=== PATIENT | male | born 1955 | race Caucasian/White ===

== ENCOUNTER 2017-08-26 06:09 | Inpatient (IN) ==
[~2017-08-26 06:09] MED LIST: VANCOMYCIN 1,000 MG VIAL ONE; ceFAZolin 1,000 MG VIAL ONE
[2017-08-26] MEDS ORDERED: TRANEXAMIC ACID 1,000 MG/10 ML VIAL ONE ×2 (06:15→07:46)
[2017-08-26] MEDS ORDERED: MORPHINE 10 MG/10 ML VIAL ONE (06:15)
[2017-08-26] MEDS ORDERED: BUPIVACAINE SPINAL 0.75% 2 ML AMP SPINAL ONE (06:15)
[2017-08-26] MEDS ORDERED: VANCOMYCIN INJ 1,000 MG in SODIUM CHLORIDE 0.9% 250 ML IV ONE (06:30)
[2017-08-26] MEDS ORDERED: ceFAZolin 1,000 MG in SYRINGE 1 EACH IV ONE (06:30)
[2017-08-26] MEDS ORDERED: FAMOTIDINE 20 MG TABLET PO ONE (06:50)
[2017-08-26] MEDS ORDERED: FAMOTIDINE 20 MG TABLET ONE (07:02)
[2017-08-26] MEDS: LACTATED RINGERS 1,000 ML IV SCH (07:17)
[2017-08-26] MEDS ORDERED: ROPIVACAINE 0.5% 30 ML VIAL ONE (08:45)
[2017-08-26] MEDS ORDERED: hydrOXYzine HCL 25 MG/1 ML VIAL IM PRN (09:42)
[2017-08-26] MEDS ORDERED: diphenhydrAMINE 50 MG/1 ML VIAL IV PRN (09:42)
[2017-08-26] MEDS ORDERED: ONDANSETRON 4 MG/2 ML VIAL IV PRN ×2 (09:42→10:15)
[2017-08-26] MEDS ORDERED: MORPHINE PCA 30 MG/30 ML SYRINGE IV ONE (09:55)
[2017-08-26] MEDS ORDERED: MIDAZOLAM 2 MG/2 ML VIAL ONE (09:57)
[2017-08-26] MEDS ORDERED: fentaNYL 100 MCG/2 ML VIAL ONE (09:57)
[2017-08-26] MEDS ORDERED: PHENYLEPHRINE 10 MG/1 ML VIAL IV ONE (09:57)
[2017-08-26] MEDS ORDERED: ONDANSETRON 4 MG/2 ML VIAL ONE (09:57)
[2017-08-26] MEDS ORDERED: GLYCOPYRROLATE 0.4 MG/2 ML VIAL ONE (09:57)
[2017-08-26] MEDS ORDERED: KETAMINE 500 MG/10 ML VIAL ONE (09:57)
[2017-08-26] MEDS ORDERED: PROPOFOL 200 MG/20 ML VIAL IV ONE (09:57)
[2017-08-26] MEDS ORDERED: SODIUM CHLORIDE 0.9% 100 ML IV ONE (09:58)
[2017-08-26] MEDS ORDERED: LACTATED RINGERS 1,000 ML IV ONE (09:58)
[2017-08-26] MEDS ORDERED: ACETAMINOPHEN 1,000 MG/100 ML VIAL IV ONE (09:58)
[2017-08-26] MEDS ORDERED: MORPHINE 10 MG/1 ML VIAL IV PRN (10:15)
[2017-08-26] MEDS ORDERED: TEMAZEPAM 7.5 MG CAPSULE PO PRN (10:16)
[2017-08-26] MEDS ORDERED: NALOXONE 0.4 MG/ML VIAL IV PRN (10:16)
[2017-08-26] MEDS ORDERED: MORPHINE 4 MG/1 ML VIAL IV PRN ×2 (10:16→11:57)
[2017-08-26] MEDS ORDERED: BISACODYL 10 MG SUPP RECTAL PRN (10:16)
[2017-08-26] MEDS ORDERED: MAGNESIUM HYDROXIDE SUSP 30 ML UDCUP PO PRN (10:16)
[2017-08-26] MEDS ORDERED: PROMETHAZINE 25 MG/1 ML VIAL IM PRN (10:16)
[2017-08-26] MEDS ORDERED: GLUCAGON 1 MG VIAL IM PRN (10:20)
[2017-08-26] MEDS ORDERED: DEXTROSE 50% 25 GM/50 ML VIAL IV PRN (10:20)
[2017-08-26] MEDS ORDERED: LACTATED RINGERS 1,000 ML IV SCH (10:30)
[2017-08-26] MEDS: MORPHINE PCA 30 MG/30 ML SYRINGE IV SCH (10:34)
[2017-08-26] MEDS ORDERED: diphenhydrAMINE CAP 25 MG CAPSULE PO PRN (11:00)
[2017-08-26] MEDS ORDERED: LACTULOSE 20 GM/30 ML UDCUP PO PRN (11:30)
[2017-08-26] MEDS: INSULIN REGULAR 100 UNIT/ML SUBCUT SCH ×3 (14:38→22:24)
[2017-08-26] MEDS: INSULIN GLARGINE 100 UNIT/ML SUBCUT SCH (17:44)
[2017-08-26] MEDS: ceFAZolin 2,000 MG in PREMIX 1 EACH IV SCH (17:45)
[2017-08-26] MEDS: DOCUSATE SODIUM 100 MG CAPSULE PO SCH (20:22)
[2017-08-27] MEDS: ceFAZolin 2,000 MG in PREMIX 1 EACH IV SCH (00:56)
[2017-08-27 05:15] LABS: Basophils # 0.1 10*3/uL (0.0-0.2); Basophils % 0.5 % (0.0-0.8); Eosinophils # 0.3 10*3/uL (0.0-0.87); Eosinophils % 1.9 % (0.00-10.9); Hematocrit 37.4 VOL% (42.0-52.0); Hemoglobin 13.5 GM/DL (14.0-18.0); Immature Granulocytes % 0.6 %; Lymphocytes # 1.9 10*3/uL (1.4-4.0); Lymphocytes % 11.4 % (21.2-54.2); Mean Corpuscular HGB Conc 36.1 GM/DL (32-36); Mean Corpuscular Hemoglobin 32 PG (27-34); Mean Corpuscular Volume 88.2 FL (87-102); Mean Platelet Volume 10.2 FL (9.6-12.0); Monocytes # 2.3 10*3/uL (0.11-0.8); Monocytes % 13.5 % (1.7-12.7); Neutrophils # 12.2 10*3/uL (1.4-7.4); Neutrophils % 72.1 % (38.7-73.9); Platelet Count 214 T/CUMM (130-400); Red Blood Count 4.24 MC/CUMM (3.8-5.5); Red Cell Distribution Width 12.4 % (9.3-17.3)
[2017-08-27 05:32] LABS: Calcium 8.4 MG/DL (8.5-10.1); Osmolality,Calculated 272.1 MOS/KG (273-304); Potassium 4.1 MMOL/L (3.5-5.1)
[2017-08-27] MEDS: LACTATED RINGERS 1,000 ML IV SCH (06:36)
[2017-08-27] MEDS: FONDAPARINUX 2.5 MG/0.5 ML SYRINGE SUBCUT SCH (06:36)
[2017-08-27] MEDS ORDERED: INSULIN GLARGINE 100 UNIT/ML SUBCUT SCH (09:00)
[2017-08-27] MEDS: DOCUSATE SODIUM 100 MG CAPSULE PO SCH ×2 (09:23→22:30)
[2017-08-27] MEDS: glyBURIDE 5 MG TABLET PO SCH (09:23)
[2017-08-27] MEDS: ROSUVASTATIN 10 MG TABLET PO SCH (09:23)
[2017-08-27] MEDS: sitaGLIPtin 100 MG TABLET PO SCH (09:23)
[2017-08-27] MEDS: hydroCHLOROthiazide 12.5 MG CAPSULE PO SCH (09:24)
[2017-08-27] MEDS: BENAZEPRIL 5 MG TABLET PO SCH (09:25)
[2017-08-27] MEDS: INSULIN REGULAR 100 UNIT/ML SUBCUT SCH ×3 (10:30→23:07)
[2017-08-27] MEDS ORDERED: ACETAMINOPHEN 325 MG TABLET PO PRN (11:40)
[2017-08-27] MEDS: INSULIN GLARGINE 100 UNIT/ML SUBCUT SCH (16:43)
[2017-08-27] MEDS: MORPHINE PCA 30 MG/30 ML SYRINGE IV SCH (17:18)
[2017-08-28 04:36] LABS: Basophils % 0.2 % (0.0-0.8); Eosinophils # 0.1 10*3/uL (0.0-0.87); Eosinophils % 0.6 % (0.00-10.9); Hematocrit 38.6 VOL% (42.0-52.0); Hemoglobin 13.7 GM/DL (14.0-18.0); Immature Granulocytes % 0.9 %; Immature Granulocytes Absolute 0.18 #; Lymphocytes # 1.7 10*3/uL (1.4-4.0); Lymphocytes % 9.1 % (21.2-54.2); Mean Corpuscular HGB Conc 35.5 GM/DL (32-36); Mean Corpuscular Hemoglobin 31 PG (27-34); Mean Corpuscular Volume 88.3 FL (87-102); Mean Platelet Volume 9.9 FL (9.6-12.0); Monocytes # 2.7 10*3/uL (0.11-0.8); Monocytes % 14.4 % (1.7-12.7); Neutrophils # 14.2 10*3/uL (1.4-7.4); Neutrophils % 74.8 % (38.7-73.9); Platelet Count 222 T/CUMM (130-400); Red Blood Count 4.37 MC/CUMM (3.8-5.5); Red Cell Distribution Width 12.1 % (9.3-17.3)
[2017-08-28 05:02] LABS: Calcium 8.7 MG/DL (8.5-10.1); Osmolality,Calculated 271.2 MOS/KG (273-304); Potassium 3.6 MMOL/L (3.5-5.1)
[2017-08-28] MEDS: FONDAPARINUX 2.5 MG/0.5 ML SYRINGE SUBCUT SCH (05:35)
[2017-08-28 08:45] VITALS: BP 180/96
[2017-08-28] MEDS: INSULIN REGULAR 100 UNIT/ML SUBCUT SCH (09:12)
[2017-08-28] MEDS: BENAZEPRIL 5 MG TABLET PO SCH (09:21)
[2017-08-28] MEDS: hydroCHLOROthiazide 12.5 MG CAPSULE PO SCH (09:21)
[2017-08-28] MEDS: DOCUSATE SODIUM 100 MG CAPSULE PO SCH (09:21)
[2017-08-28] MEDS: glyBURIDE 5 MG TABLET PO SCH (09:21)
[2017-08-28] MEDS: sitaGLIPtin 100 MG TABLET PO SCH (09:21)
[2017-08-28] MEDS: ROSUVASTATIN 10 MG TABLET PO SCH (09:21)
[2017-08-28] MEDS: LACTATED RINGERS 1,000 ML IV SCH (09:30)
== END 2017-08-28 12:06 | disposition home health service (06) | DRG 470 ==
LOC: SUPCPDRO → N.OR 06:09 → N.SDSINP 06:11 → N.3E 10:16
PROVIDERS: ADMIT Orthopaedic Surgery; ATTEND Orthopaedic Surgery

== ENCOUNTER 2020-10-21 09:27 | Observation (INO) ==
[2020-10-21 10:28] LABS: Basophils # 0.1 10*3/uL (0.0-0.2); Basophils % 0.6 % (0.0-0.8); Eosinophils # 0.3 10*3/uL (0.0-0.87); Eosinophils % 2.5 % (0.00-10.9); Hematocrit 45.6 VOL% (42.0-52.0); Hemoglobin 16.1 GM/DL (14.0-18.0); Immature Granulocytes % 0.6 %; Immature Granulocytes Absolute 0.06 #; Lymphocytes # 2.1 10*3/uL (1.4-4.0); Lymphocytes % 20.5 % (21.2-54.2); Mean Corpuscular HGB Conc 35.3 GM/DL (32-36); Mean Corpuscular Volume 88.9 FL (87-102); Mean Platelet Volume 9.8 FL (9.6-12.0); Monocytes % 10.6 % (1.7-12.7); Neutrophils % 65.2 % (38.7-73.9); Platelet Count 287 T/CUMM (130-400); Red Blood Count 5.13 MC/CUMM (3.8-5.5); Red Cell Distribution Width 12.7 % (9.3-17.3); White Blood Count 10.5 T/CUMM (4-12)
[2020-10-21 10:47] LABS: Albumin 4.5 G/DL (3.4-5.0); Bilirubin,Total 0.4 MG/DL (0.20-1.00); Calcium 9.4 MG/DL (8.5-10.1); Osmolality,Calculated 284.8 MOS/KG (273-304); Potassium 4.4 MMOL/L (3.5-5.1); Total Protein 7.5 G/DL (6.4-8.2)
[2020-10-21] MEDS ORDERED: ASPIRIN 325 MG TABLET PO STA (11:09)
[2020-10-21] MEDS ORDERED: ENOXAPARIN 100 MG/ML SYRINGE SUBCUT STA (11:43)
[2020-10-21] MEDS ORDERED: DEXTROSE 50% 25 GM/50 ML VIAL IV PRN (11:44)
[2020-10-21] MEDS ORDERED: ONDANSETRON 4 MG/2 ML VIAL IV PRN (11:44)
[2020-10-21] MEDS ORDERED: GLUCAGON 1 MG VIAL IM PRN (11:44)
[2020-10-21] MEDS ORDERED: ACETAMINOPHEN 325 MG TABLET PO PRN (11:44)
[2020-10-21] MEDS ORDERED: CYCLOBENZAPRINE 10 MG TABLET PO PRN (11:46)
[2020-10-21 16:07] VITALS: BP 132/68
[2020-10-21] MEDS ORDERED: methylPREDNISolone 4 MG TABLET PO SCH (18:00)
[2020-10-21] MEDS ORDERED: glyBURIDE 5 MG TABLET PO SCH (21:00)
[2020-10-21] MEDS ORDERED: DOCUSATE SODIUM 100 MG CAPSULE PO SCH (21:00)
[2020-10-21] MEDS ORDERED: INSULIN GLARGINE 100 UNIT/ML SUBCUT SCH (21:00)
[2020-10-21] MEDS ORDERED: busPIRone 5 MG TABLET PO SCH (21:00)
[2020-10-22] MEDS ORDERED: methylPREDNISolone 4 MG TABLET PO SCH (08:00)
[2020-10-22] MEDS ORDERED: ENALAPRIL 10 MG TABLET PO SCH (09:00)
[2020-10-22] MEDS ORDERED: sitaGLIPtin 100 MG TABLET PO SCH (09:00)
[2020-10-22] MEDS ORDERED: ROSUVASTATIN 10 MG TABLET PO SCH (09:00)
[2020-10-22] MEDS ORDERED: PANTOPRAZOLE 40 MG TABLET PO SCH (09:00)
[2020-10-22] MEDS ORDERED: ASPIRIN EC 81 MG TABLET PO SCH (09:00)
== END 2020-10-21 18:20 | disposition home or self-care (01) ==
LOC: N.ED 09:27 → N.EDINP 09:27 → N.TELEN 12:22
PROVIDERS: ADMIT Family Medicine; ATTEND Family Medicine